=== PATIENT | female | born 2000 | race Caucasian/White ===

== ENCOUNTER 2020-12-14 08:58 | Outpatient (CLI) | payer OTHER ==
[~2020-12-14] VITALS: Ht 170.2 cm; Wt 76.2 kg
[2020-12-14 09:00] VITALS: BP 105/57
[2020-12-14 10:39] VITALS: BP 104/51
[2020-12-14 11:57] VITALS: BP 111/53
[2020-12-14 13:15] VITALS: BP 133/63
== END 2020-12-14 13:15 | disposition home or self-care (01) ==
LOC: M INFU 08:58
DX: O99.013 Anemia complicating pregnancy, third trimester (principal); D50.9 Iron deficiency anemia, unspecified; Z3A.35 35 weeks gestation of pregnancy
CPT/HCPCS: 96365; 96366; J1756

== ENCOUNTER 2020-12-21 08:57 | Outpatient (CLI) | payer OTHER ==
[~2020-12-21] VITALS: Ht 170.2 cm; Wt 76.2 kg
[2020-12-21 09:00] VITALS: BP 128/61
[2020-12-21 10:15] VITALS: BP 98/60
[2020-12-21 11:30] VITALS: BP 111/53
== END 2020-12-21 11:30 | disposition home or self-care (01) ==
LOC: M INFU 08:57 → EDUNIT# 09:00 → M INFU 11:30
DX: O99.013 Anemia complicating pregnancy, third trimester (principal); Z3A.35 35 weeks gestation of pregnancy
CPT/HCPCS: 96365; J1756

== ENCOUNTER 2020-12-28 09:59 | Outpatient (CLI) | payer OTHER ==
[~2020-12-28] VITALS: Ht 170.2 cm; Wt 76.2 kg
[2020-12-28 10:10] VITALS: BP 140/64
[2020-12-28] MEDS ORDERED: PREN29CH2 PO (10:24)
[2020-12-28 11:17] VITALS: BP 124/64
[2020-12-28 12:15] VITALS: BP 128/61
[2020-12-28 13:30] VITALS: BP 114/56
== END 2020-12-28 13:30 | disposition home or self-care (01) ==
LOC: M INFU 09:59
DX: O99.013 Anemia complicating pregnancy, third trimester (principal); Z3A.35 35 weeks gestation of pregnancy
CPT/HCPCS: 96365; 96366; J1756

== ENCOUNTER 2021-01-04 19:36 | Inpatient (IN) | payer OTHER ==
[2021-01-04] VITALS (7 sets, daily range): BP systolic 118–142; BP diastolic 57–85
[~2021-01-04] VITALS: Ht 170.2 cm; Wt 79.4 kg
[~2021-01-04 19:36] MED LIST: PREN29CH2 PO
[2021-01-04] MEDS ORDERED: OXYTOCIN DRIP 30 UNITS in IV 1 EA IV PRN (19:55)
[2021-01-04] MEDS ORDERED: LIDOCAINE 1% MDV 20ML VIAL INFIL PRN (19:55)
[2021-01-04 20:33] LABS: HEMATOCRIT 38.2 % (36.0-47.0); HEMOGLOBIN 12.8 g/dl (12.0-15.5); MEAN CORPUSCULAR HGB CONC 33.5 g/dl (32.0-36.5); MEAN CORPUSCULAR VOLUME 95.5 fl (80.0-96.0); PLATELET COUNT, AUTOMATED 200 10^3/uL (150-450); WHITE BLOOD COUNT 14.5 10^3/uL (4.0-10.0)
[2021-01-04] MEDS ORDERED: LR 1,000 ML IV SCH (20:49)
[2021-01-04] MEDS ORDERED: OXYTOCIN DRIP 30 UNITS in IV 1 EA IV SCH ×2 (20:50→22:00)
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
[2021-01-04] MEDS ORDERED: IBUPROFEN 600MG TAB PO PRN (22:00)
[2021-01-04] MEDS ORDERED: ACETAMINOPHEN TAB 650MG DOSE (2X325MG) PO PRN (22:00)
[2021-01-04] MEDS ORDERED: ACETAMINOPHEN 500 MG TAB PO PRN (22:00)
[2021-01-04] MEDS ORDERED: IBUPROFEN 800 MG TAB PO PRN (22:00)
[2021-01-04] MEDS ORDERED: DIBUCAINE 1% OINTMENT 30GM TOP PRN (22:00)
[2021-01-04] MEDS ORDERED: DOCUSATE SODIUM 100MG CAPSULE PO PRN (22:00)
[2021-01-04 22:01] LABS: CORD GAS ABE V -1.8; CORD GAS HCO3 V 23.7 MEQ/L; CORD GAS O2 SAT V 77.4 %; CORD GAS PCO2 V 43.1 mmHg; CORD GAS PH V 7.359 UNITS; CORD GAS PO2 V 31.9 mmHg; CORD GAS SBC V 22.5 MEQ/L; CORD GAS TCO2 V 25.1 MEQ/L
[2021-01-04 22:01] LABS: CORD GAS ABE A -3.7; CORD GAS HCO3 A 25.1 MEQ/L; CORD GAS O2 SAT A 42.4 %; CORD GAS PCO2 A 61.5 mmHg; CORD GAS PH A 7.229 UNITS; CORD GAS PO2 A 19.9 mmHg; CORD GAS SBC A 20.1 MEQ/L
--- NOTE | 2021-01-04 22:08 | DNPDOC ---
[facility] Delivery Note Delivery Note DATE OF DELIVERY: 01/04/21 PREDELIVERY DIAGNOSIS: 39+1/7 weeks' gestation and labor. POST DELIVERY DIAGNOSIS: Delivered. PROCEDURE: Spontaneous vaginal delivery POULTRY DEBEAKER: Dr. Facundo Mata DO ANESTHESIA: none ESTIMATED BLOOD LOSS: 100 mL. FINDINGS:2990g, Score 8/9, nuchal cord times 1. DELIVERY SUMMARY: Ms. Maki is a 20yo at 39+1 who presented for induction for growth restriction (abdominal circumference at <10%ile) that had been demonstrated on a growth scan in the past 2 days, although when she arrived for induction she was in early labor. She quickly progressed to anterior lip and at this point voiced that she could not prevent pushing. The anterior lip was easily reduced. With good maternal effort she delivered the head in the HUMERA position followed by the body without difficulty. there was a loose nuchal cord that was easily reduced. The baby had spontaneous movement and cry. Cord clamping was delayed 1 minute. It was clamped and cut by the father of the baby. Cord blood and gasses were obtained. The placenta delivered with evelin downward traction and was in-tact. The uterus was firm, bleeding was scant, and she had no lacerations. There were no complications. The sponge, lap and needle counts were correct. FACUNDO MATA DO Jan 04, 2021 22:08
[2021-01-05 00:15] VITALS: BP 125/58
--- NOTE | 2021-01-05 05:37 | IPNPDOC ---
Progress Note Date of Service: Jan 05, 2021 Day#: 1 Progress Note SUBJECT: Ms. Maki is a 20yo PPD1 s/p uncomplicated at 39+1. She presented for IOL for FGR with AC at 9%ile but was in labor on arrival. 2990g, Score 8/9. no lacerations. She has been ambulating, voiding spontaneously without issue and tolerating regular diet. Breast feeding without issue. Reports lochia is like a normal period. Patient is ambulating well. Reports some cramping with . Denies any pain. Voiding and passing flatus without difficulty. APC 1. history of GDM in prior 2. pyelonephritis this , not taking ppx 3. FGR AC >10%ile, normal dopplers 4. anemia getting Fe infusions due to inability to tolerate PO Fe 5. Anxiety and depression, not on medications 6. current smoker / PPD (prior to / PPD) OBJECTIVE: VITAL SIGNS: Within normal limits, afebrile. Alert and oriented times three. No increased WOB Heart rate: non-tachy Abdomen: Fundus firm at U-2. Soft, NTTP. Minimal lochia per patient ASSESSMENT: Ms. Maki is a 20yo PPD1 s/p uncomplicated at 39+1. She presented for IOL for FGR with AC at 9%ile but was in labor on arrival. 2990g, Score 8/9, no lacerations. Vitals within normal limits, afebrile, hemodynamically stable with no evidence of infection. PLAN: 1. Discharge to home tomorrow 2. Tylenol and Motrin for pain. 3. Encourage breast feeding and ambulation. 4. Desires IUD at 6wk for contraception 5. Routine PP visit in 6 weeks in clinic. 6. Discussed return precautions at length. VS, I&O, 24H, Saulo Vital Signs/I&O Vital Signs Date Time Temp Pulse Resp B/P (MAP) Pulse Ox O2 Delivery O2 Flow Rate FiO2 01/05/21 00:15 98.5 88 16 125/58 (80) 97 Room Air I&O- Last 24 Hours up to 6 AM 01/05/21 06:00 Intake Total 1300 ml Output Total 500 ml Balance 800 ml Laboratory Data 24H LABS Laboratory Tests 2 01/04/21 20:13: Serology Scanned Report Hepatitis B Testing 01/04/21 20:18: Nucleated Red Blood Cells % (auto) 0.0, Cord Arterial Blood pH 7.229, Cord Arterial Blood PCO2 61.5, Cord Arterial Blood PO2 19.9, Cord Arterial Blood HCO3 25.1, Cord Arterial Blood Total CO2 27.0, Cord Arterial Blood Base Excess -3.7, Cord Arterial Base Excess (Standard 20.1, Cord Arterial Bld Oxygen Saturation 42.4, Syphilis Serology NONREACTIVE 01/04/21 21:51: Cord Venous Blood pH 7.359, Cord Venous Blood PCO2 43.1, Cord Venous Blood PO2 31.9, Cord Venous Blood HCO3 23.7, Cord Venous Blood Total CO2 25.1, Cord Venous Base Excess (Actual) -1.8, Cord Venous Base Excess (Standard) 22.5, Cord Venous Blood Oxygen Saturation 77.4 CBC/BMP Laboratory Tests 01/04/21 20:18 BERRY MATA DO Jan 05, 2021 05:37
[2021-01-05 05:48] VITALS: BP 119/56
[2021-01-05] MEDS ORDERED: PRENATAL VITAMINS CHEWABLE TABLET PO SCH (09:00)
[2021-01-05 18:00] VITALS: BP 128/64
== END 2021-01-05 23:00 | disposition home or self-care (01) | DRG 807 ==
LOC: M LDI 19:36 → M OBS 01-05 00:17
PROVIDERS: ADMIT Obstetrics & Gynecology; ATTEND Obstetrics & Gynecology
PROC: 10E0XZZ Delivery of Products of Conception, External Approach (ICD-10-PCS; principal; 2021-01-04)
DX: O62.3 Precipitate labor (principal); Z37.0 Single live birth; D64.9 Anemia, unspecified; O99.334 Smoking (tobacco) complicating childbirth; F17.200 Nicotine dependence, unspecified, uncomplicated; O36.5930 Maternal care for other known or suspected poor fetal growth, third trimester, not applicable or unspecified; O99.02 Anemia complicating childbirth; Z3A.39 39 weeks gestation of pregnancy